=== PATIENT | female | born 1960 | race Caucasian/White ===

== ENCOUNTER → 2017-06-04 16:28 | Outpatient (CLI) | payer OTHER, SELFPAY ==
--- NOTE | 2017-06-04 16:34 | RAD_ITS ---
XR Chest 2 Views INDICATION: cough COMPARISON: None FINDINGS: Heart size and pulmonary vascularity are within normal limits. The lungs are clear without evidence of airspace consolidation or pleural effusion. The osseous structures are grossly unremarkable. RAD/Chest PA and Lateral IMPRESSION: No radiographic evidence of acute intrathoracic disease. at 1444 Reported and signed by: Pam Anton MD Electronically Signed: Pam Anton MD at 22:52 EST Tel , Service support ,
== END ==
PROVIDERS: Family Provider Family Medicine; PCP Family Medicine; Visit Provider Family Medicine
DX: R05 Cough (principal)
CPT/HCPCS: 71046

== ENCOUNTER → 2017-08-11 08:29 | Outpatient (CLI) | payer OTHER, SELFPAY ==
--- NOTE | 2017-08-11 08:31 | BI_ITS ---
MAMMOGRAPHY - BILATERAL SCREENING REASON FOR EXAM: Female, 57 years old. Routine annual screening examination. PERTINENT HISTORY: Non-contributory. TECHNIQUE: Digital bilateral breast jenny (3D mammographic acquisition) in the CC and MLO projections. 2-D mediolateral oblique (MLO) and craniocaudad (CC) views of both breasts were obtained. CAD: Full Field Digital Mammography with Computer Added Detection was performed. COMPARISON: Comparison is made with prior study dated July 16, 2016 and November 09, 2014. FINDINGS: Breast Composition: There are scattered areas of fibroglandular density. There are no dominant masses or suspicious calcifications. No other significant abnormalities are identified. There has been no significant change since the prior study. BI/SCREENING MAMM (CAD), BILAT IMPRESSION: Stable bilateral screening mammogram. Yearly follow-up mammogram recommended. (A) ASSESSMENT CATEGORY: BIRADS Category 1: Negative. A letter regarding these results will be sent to the patient by the facility within 30 days. Approximately 10% of breast cancers are not detected by mammography. A normal mammogram should not delay biopsy of a clinically suspicious abnormality. [id number] Electronically Signed: Romulo Hermosillo MD at 9:32 EDT Tel [phone], Service support ,
== END ==
PROVIDERS: Family Provider Family Medicine; PCP Family Medicine; Visit Provider Family Medicine
DX: Z12.31 Encounter for screening mammogram for malignant neoplasm of breast (principal)
CPT/HCPCS: 77063; 77067

== ENCOUNTER → 2018-08-14 07:20 | Outpatient (CLI) | payer OTHER, SELFPAY ==
--- NOTE | 2018-08-14 07:23 | BI_ITS ---
MAMMOGRAPHY - BILATERAL SCREENING REASON FOR EXAM: Female, 58 years old. Routine annual screening examination. PERTINENT HISTORY: Non-contributory. TECHNIQUE: Digital bilateral breast jenny (3D mammographic acquisition) in the CC and MLO projections. 2-D mediolateral oblique (MLO) and craniocaudad (CC) views of both breasts were obtained. CAD: Full Field Digital Mammography with Computer Added Detection was performed. COMPARISON: Comparison is made with prior study dated August 11, 2017 and July 16, 2016. FINDINGS: Breast Composition: There are scattered areas of fibroglandular density. There are no dominant masses or suspicious calcifications. No other significant abnormalities are identified. There has been no significant change since the prior study. BI/SCREENING MAMM (CAD), BILAT IMPRESSION: Stable bilateral screening mammogram. Yearly follow-up mammogram recommended. (A) ASSESSMENT CATEGORY: BIRADS Category 1: Negative. A letter regarding these results will be sent to the patient by the facility within 30 days. Approximately 10% of breast cancers are not detected by mammography. A normal mammogram should not delay biopsy of a clinically suspicious abnormality. [id number] Electronically Signed: Romulo Hermosillo, at 9:08 EDT , Service support ,
== END ==
PROVIDERS: Family Provider Family Medicine; PCP Family Medicine; Referring Provider Family Medicine; Visit Provider Family Medicine
DX: Z12.31 Encounter for screening mammogram for malignant neoplasm of breast (principal)
CPT/HCPCS: 77063; 77067

== ENCOUNTER → 2018-12-29 10:41 | Outpatient (CLI) | payer OTHER, SELFPAY ==
[2017-03-18 07:34] VITALS: BMI 30.4
== END ==
PROVIDERS: Family Provider Family Medicine; PCP Family Medicine; Referring Provider Nurse Practitioner Adult Health; Visit Provider Nurse Practitioner Adult Health
DX: N39.0 Urinary tract infection, site not specified (principal)
CPT/HCPCS: 87086; 87088

== ENCOUNTER → 2019-01-05 16:20 | Outpatient (CLI) | payer OTHER, SELFPAY ==
[2017-03-18 07:34] VITALS: BMI 30.4
== END ==
PROVIDERS: Family Provider Family Medicine; PCP Family Medicine; Visit Provider Nurse Practitioner Adult Health
DX: N76.0 Acute vaginitis (principal)
CPT/HCPCS: 87070; 87075; 87205

== ENCOUNTER 2019-02-02 05:57 | Day surgery (SDC) | payer OTHER, SELFPAY ==
[2019-02-02] VITALS (7 sets, daily range): BP systolic 104–141; BP diastolic 82–88; PULSE 61–82; RESP 16–18; TEMP 36–36.2; O2SAT 94–100; BMI 31.6
[2019-02-02] MEDS: Lactated Ringers 1,000 ML 100 ML IV (07:01)
--- NOTE | 2019-02-02 07:37 | PCM.OPRPT ---
Problem List (1) Urge incontinence Status: Acute (2) Urinary tract infection Status: Acute Report of Operation Date of Procedure: 02/02/19 Pre-Operative Diagnosis: urinary tract infections, urge incontinence Post-Operative Diagnosis: same Surgery/Procedure Performed:: cystourethroscopy, pelvic exam under anesthesia Description of Surgical Findings:: No visible mesh in urethra. Urethra is short, mildly narrowed, decreased mobility. No mass or ulceration bladder mucosa. 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 Both of these procedures were marked by complications. Now she is developing severe urge incontinence where she is emptying her entire bladder contents. In order to further evaluate the anatomy of the urethra, we decided to proceed with cystoscopic evaluation under anesthesia. Informed consent was obtained. The patient was taken to the operating room and placed on the operating room table. Anesthesia monitored the head, neck, airway, IV access and vital signs throughout the case. Following appropriate administration of anesthesia, the patient was placed in dorsal lithotomy position was prepped and draped in usual sterile fashion. On pelvic examination, there is no palpable mesh. There is a small rectocele present. The urethral length appears to be shortened. A 21 [place] cystoscope with 0 degree lens was inserted through the urethra under direct visualization. There is mild narrowing of the urethra approximately 1 cm from the meatus. There is no visible mesh or foreign material within the urethral lumen. There is decreased mobility and shortening of the urethral length. The length is approximately 2-1/2 cm. Upon entry into the urinary bladder, the 70 degree lens was inserted. The bladder mucosa was visualized in its entirety. There were no abnormalities identified including mass, erythema, ulceration, foreign body, trabeculation or diverticula. The ureteral orifices were located in the correct anatomic position. At this point the patient's bladder was emptied and the case was terminated. The patient was taken to the recovery room in good condition. Grafts/Implants Used: none - Complications none - Admit VTE Documentation VTE Present on Admission: Yes VTE Mechan Device Prophylaxis: SCD's VTE Pharm Prophylaxis ordered?: No Reason prophylaxis not ordered:: Treatment Not Indicated
--- NOTE | 2019-02-02 07:51 | PCM.DC.URO ---
Discharge Diet: No Restrictions Discharge Activity: - - may drive in 24hrs May resume sexual activity in: No Restrictions Call your doctor if you observe: Inability to urinate, Inability to have a bowel movement, Shortness of breath, Chest pain, Uncontrolled pain Allergies/Adverse Reactions: Allergies Sulfa (Sulfonamide Antibiotics) Allergy (Verified 02/02/19 06:50) Anaphylaxis tomato Allergy (Verified 02/02/19 06:50) Mucosal lesions acetaminophen [From Vicodin] Adverse Reaction (Verified 02/02/19 06:50) HALLUCINATIONS codeine Adverse Reaction (Verified 02/02/19 06:50) Nausea/Vom/Diarrhea hydrocodone [From Vicodin] Adverse Reaction (Verified 02/02/19 06:50) HALLUCINATIONS promethazine [From Phenergan] Adverse Reaction (Verified 02/02/19 06:50) HALLUCINATIONS Medications to take at Discharge Estradiol [Divigel] 0.25 mg TD SUWE 01/26/19 Fluticasone 0.05% [Flonase Nasal Jackson] 1 spray NASAL DAILY PRN 01/26/19 Primary Care Physician: Maverick Becker MD [Primary Care Provider] - Test Results: Test results from this visit will be discussed in further detail at your follow-up appointment, if applicable. Please Follow Up With: Gisela Camejo MD When: call office for appt, needs urodynamics Proposed Discharge Date: 02/02/19
== END 2019-02-02 08:49 | disposition home or self-care (01) ==
LOC: SDC 05:59 → AC 06:00
PROVIDERS: Family Provider Family Medicine; PCP Family Medicine; Referring Provider Urology; Visit Provider Urology
PROC: (CPT 52000; principal; 2019-02-02 07:15)
DX: N39.41 Urge incontinence (principal); N39.0 Urinary tract infection, site not specified; N95.2 Postmenopausal atrophic vaginitis; N81.6 Rectocele
CPT/HCPCS: 00910; 52000; J7120; J2405

== ENCOUNTER → 2019-10-07 16:30 | Outpatient (CLI) | payer OTHER, SELFPAY ==
[2019-02-02 06:54] VITALS: BMI 31.6
--- NOTE | 2019-10-07 16:48 | BI_ITS ---
MAMMOGRAPHY - BILATERAL SCREENING REASON FOR EXAM: Female, 59 years old. Routine annual screening examination. PERTINENT HISTORY: Non-contributory. TECHNIQUE: Digital bilateral breast yandel (3D mammographic acquisition) in the CC and MLO projections. 2-D mediolateral oblique (MLO) and craniocaudad (CC) views of both breasts were obtained. CAD: Full Field Digital Mammography with Computer Added Detection was performed. COMPARISON: Comparison is made with prior study dated August 14, 2018 and August 11, 2017. FINDINGS: Breast Composition: There are scattered areas of fibroglandular density. There are no dominant masses or suspicious calcifications. No other significant abnormalities are identified. There has been no significant change since the prior study. BI/SCREEN MAMM (CAD) W/YANDEL BILAT IMPRESSION: Stable bilateral screening mammogram. Yearly follow-up mammogram recommended. (A) ASSESSMENT CATEGORY: BIRADS Category 1: Negative. A letter regarding these results will be sent to the patient by the facility within 30 days. Approximately 10% of breast cancers are not detected by mammography. A normal mammogram should not delay biopsy of a clinically suspicious abnormality. [id number] Electronically Signed: Romulo Hermosillo, at 8:22 EDT , Service support ,
== END ==
PROVIDERS: PCP Family Medicine; Referring Provider Obstetrics & Gynecology; Visit Provider Obstetrics & Gynecology
DX: Z12.31 Encounter for screening mammogram for malignant neoplasm of breast (principal)
CPT/HCPCS: 77063; 77067

== ENCOUNTER → 2019-11-30 07:46 | Outpatient (CLI) | payer OTHER, SELFPAY ==
[2019-02-02 06:54] VITALS: BMI 31.6
[2019-11-30 10:50] LABS: Anion Gap 4 (5-15); BUN 14 mg/dL (7-18); BUN/Creat Ratio 22.3 RATIO (10-20); Calcium,Total 8.6 mg/dL (8.5-10.1); Chloride 106 mmol/L (98-107); Cholesterol 184 mg/dL (200); Creatinine, Serum 0.63 mg/dL (0.55-1.02); EST Glomerular Filtration Rate 102 mL/min (>60); Est Glom Filt Rate - Afr Amer 124 mL/min (>60); Glucose 88 mg/dL (74-106); High Density Lipoprotein 49 mg/dL; Potassium 3.9 mmol/L (3.5-5.1); Sodium Level 138 mmol/L (136-145); Triglycerides 77 mg/dL; Very Low Density Lipoprotein 15 mg/dL (5-40)
== END ==
PROVIDERS: PCP Family Medicine; Referring Provider Family Medicine; Visit Provider Family Medicine
DX: Z13.220 Encounter for screening for lipoid disorders (principal); Z13.1 Encounter for screening for diabetes mellitus
CPT/HCPCS: 36415; 80048; 80061

== ENCOUNTER → 2020-04-21 06:23 | Outpatient (CLI) | payer OTHER, SELFPAY ==
[2019-02-02 06:54] VITALS: BMI 31.6
[2020-04-21 07:51] LABS: Anion Gap 3 (5-15); BUN 20 mg/dL (7-18); BUN/Creat Ratio 26.9 RATIO (10-20); Calcium,Total 8.8 mg/dL (8.5-10.1); Chloride 107 mmol/L (98-107); Creatinine, Serum 0.74 mg/dL (0.55-1.02); EST Glomerular Filtration Rate 84 mL/min (>60); Est Glom Filt Rate - Afr Amer 102 mL/min (>60); Glucose 85 mg/dL (74-106); Sodium Level 140 mmol/L (136-145)
== END ==
PROVIDERS: PCP Family Medicine; Referring Provider Family Medicine; Visit Provider Family Medicine
DX: I10 Essential (primary) hypertension (principal)
CPT/HCPCS: 36415; 80048

== ENCOUNTER → 2020-05-10 15:36 | Outpatient (CLI) | payer OTHER, SELFPAY ==
[2019-02-02 06:54] VITALS: BMI 31.6
--- NOTE | 2020-05-10 15:44 | MRI_ITS ---
STUDY: MRI RIGHT ANKLE WITHOUT CONTRAST REASON FOR EXAM: Female, 60 years old. plantar fasciitis, stress fracture calcaneous -- hx of radiation to heel for wart TECHNIQUE: Standardized fat and water weighted pulse sequences were obtained in all 3 orthogonal planes. COMPARISON: None. FINDINGS: Normal subcutis adipose space. No marrow edema or occult fracture is seen. No plantar fibroma is visualized. Slightly prominent lobulated subcutaneous fat on the medial side of the heel versus a small lipoma measuring 4.51 cm. Normal posterior tibialis tendon. Normal flexor digitorum longus tendon. Normal flexor hallucis longus tendon. Normal peroneus longus and brevis tendons. Normal tibialis anterior tendon. Normal extensor hallucis longus tendon. Normal extensor digitorum longus tendons. Normal Achilles tendon and teno-osseous insertion. Normal plantar fascia. No plantar fascial thickening or intrinsic degeneration seen on the current study. No plantar bursitis or active edema is seen on the current study. No visualized plantar calcaneal spur. Normal plantar calcaneal tubercles. Normal intrinsic muscles of the rearfoot. Normal distal tibiofibular syndesmotic ligamentous complex. Normal lateral ligamentous complex. Normal subtalar ligaments and sinus tarsi. Normal deltoid ligamentous complexes. Normal plantar calcaneonavicular (spring) ligament. Normal tibiotalar articulation. Normal talar dome. Normal subtalar articulations. Normal talonavicular articulation. Normal calcaneocuboid articulation. Normal navicular-cuneiform articulations. MRI/Lower Ext Joint Only (Routine) IMPRESSION: 1. Normal plantar fascia. No plantar fascial thickening or intrinsic degeneration seen on the current study. No plantar bursitis or active edema is seen on the current study. No visualized plantar calcaneal spur. 2. No marrow edema or occult fracture is seen. No plantar fibroma is visualized. 3. Slightly prominent lobulated subcutaneous fat on the medial side of the heel versus a small lipoma measuring 4.51 cm. Electronically Signed: Boom Ervin MD at 22:14 EST , Service support ,
== END ==
PROVIDERS: PCP Family Medicine; Referring Provider Podiatrist; Visit Provider Podiatrist
DX: M72.2 Plantar fascial fibromatosis (principal); S90.31XA Contusion of right foot, initial encounter; S92.009A Unspecified fracture of unspecified calcaneus, initial encounter for closed fracture
CPT/HCPCS: 73721

== ENCOUNTER → 2020-08-21 14:37 | Outpatient (CLI) | payer OTHER, SELFPAY ==
[2019-02-02 06:54] VITALS: BMI 31.6
== END ==
PROVIDERS: PCP Family Medicine; Visit Provider Family Medicine
DX: N39.0 Urinary tract infection, site not specified (principal)
CPT/HCPCS: 87077; 87086; 87088; 87186

== ENCOUNTER → 2020-09-29 08:43 | Outpatient (CLI) | payer OTHER, SELFPAY ==
[2019-02-02 06:54] VITALS: BMI 31.6
--- NOTE | 2020-09-29 08:46 | RAD_ITS ---
STUDY: X-RAY - RIGHT KNEE REASON FOR EXAM: Female, 60 years old. KNEE PAIN TECHNIQUE: 3 view(s) of the knee. COMPARISON: None. FINDINGS: Normal visualized distal femur. Normal visualized proximal tibia and fibula. Normal proximal tibiofibular articulation. There is mild degenerative arthrosis of the medial femorotibial compartment. Normal lateral femorotibial compartment. Normal patellofemoral articulation. The soft tissue structures are unremarkable. RAD/Knee 3 Views IMPRESSION: Degenerative arthrosis. Electronically Signed: Romulo Hermosillo MD at 13:08 EDT , Service support ,
== END ==
PROVIDERS: PCP Family Medicine; Referring Provider Family Medicine; Visit Provider Family Medicine
DX: M25.561 Pain in right knee (principal)
CPT/HCPCS: 73562

== ENCOUNTER 2020-11-15 17:30 | Outpatient (RCR) | payer OTHER, SELFPAY ==
[2019-02-02 06:54] VITALS: BMI 31.6
--- NOTE | 2020-10-04 15:51 | HP.PTEVAL_ITS ---
Patient's Visit Information HUDSON WOMACK is a 60 year old F referred to Physical Therapy by Dr. Maverick Becker MD with a diagnosis of R knee pain. Date of Evaluation: 10/04/20 Physical Therapist: KAROLINE Gutierrez - Visit Plan Frequency: 2x /Week Duration: 6 Weeks Plan: 2X/ week for 6 weeks for R knee and hip strength, core stability, US to the R medial joint line to see if helps with the pain, gait training, with HEP - Subjective Pt reports that there are days that she can not put weight on her knee or do steps or anything. There are days that she has no pain. It has been going on for awhile. 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 It is a shooting pain and sometimes it wakes her up at night. She does have back pain. She also had shoulder shoulder and she has a lot of arthritis. Stairs, side motions, squats, twisting hurts the most and going down stairs hurts worse than upstairs, changing directions.... and that is only sometimes In the last 2-3 weeks she feels her R knee is weak but the pain is not always there. When she has her back pain sometimes it does radiate down the R leg and she has had that pain for years and that started in 2007. She has not had any images of her back. Sometimes picking up objects from the floor increase her back pain for an hour. Sometimes the knee pain is sharp and sometimes it is just achy and she does not know what is causing the sharp pain. - Pain R knee pain Pain Intensity (Out of 10): 1 - Objective Gait: walks with decrease stance time on the R.. (also has a history of non- healing plantar wart from radiation treatments). Palpation: tender along the medial joint line on the L knee. LE MMT: R hip flex 4-/5 and L 4/5, B knee ext and flex 4/5, R hip abd 4-/5 and L 4/5, R hip ext 4-/5 and L 4/5. no pain with valgus/verus of the R knee. Pt is able to walk on heels and toes without dificulty. + SLR on the R for back pain. B knee flexion 127 degrees flexion and 0 degrees extension - Goals Goal 1:: I HEP Goal Time Frame: 4-6 Weeks Goal 2:: Increase LE strength by 1/2 muscle grade (at time of the eval: LE MMT: R hip flex 4-/5 and L 4/5, B knee ext and flex 4/5, R hip abd 4-/5 and L 4/5, R hip ext 4-/5 and L 4/5. no pain with valgus/verus of the R knee. Pt is able to walk on heels and toes without dificulty. + SLR on the R for back pain). Goal Time Frame: 4-6 Weeks Goal 3:: Be able to walk without an antalgig gait Goal Time Frame: 4-6 Weeks Goal 4:: Be able to go down the steps without having R knee pain Goal Time Frame: 6-8 Weeks - Rehabilitation Potential Rehabilitation Potential: Good - Anticipated Interventions Patient/Client Instruction: Educate patient on: Condition, Plan of Care For the Purpose of:: To decrease pain, To decrease swelling/inflammation, To increase ROM, To improve nutrient delivery to tissue, To improve muscle performance and motor function, To improve ability to perform ADL's, To increase tolerance to activity/condition/position, To improve performance and independence with ADL's, To decrease level of supervision to perform tasks, To improve ability of physical actions for home/community/work/leisure, To improve gait and locomotor functions, To improve health of tissue, To decrease soft tissue restriction, To increase flexibility/ROM Therapeutic Exercise to Include: Strength training, Balance training, Flexibilty training, Gait and locomotor training, Passive ROM, Active ROM, Dynamic Lumbar Stabilization For the Purpose of:: To decrease pain, To improve nutrient delivery to tissue, To increase oxygenation perfusion, To improve muscle performance and motor function, To improve ability to perform ADL's, To increase tolerance to activity/condition/position, To improve performance and independence with ADL's, To decrease level of supervision to perform tasks, To improve ability of physical actions for home/community/work/leisure, To improve gait and locomotor functions, To improve health of tissue, To decrease soft tissue restriction, To increase flexibility/ROM Functional Training to Include: Gait training For the Purpose of:: To improve gait and locomotor functions, To improve safety with gait Manual Therapy Techniques to Include: Mobilization, Passive ROM, Soft tissue mobilization For the Purpose of:: To decrease pain, To decrease swelling/inflammation, To increase ROM, To improve nutrient delivery to tissue, To improve muscle performance and motor function Ultrasound (thermal/non thermal): Yes For the Purpose of:: To decrease pain, To increase ROM, To improve nutrient delivery to tissue Thank you for the opportunity to evaluate your patient. For Medicare and Medicare HMO plans, please review the plan of care and approve it. It will need to be FAXED BACK to us at [phone] for Medicare purposes. For Medicare only, by signing this I certify the plan of care. Please let me know if there are questions or concerns regarding this plan of care. Physician Signature: Date:_
--- NOTE | 2020-11-15 19:02 | HP.PTDCSUM ---
It has been my pleasure to treat HUDSON WOMACK referred by Dr. Maverick Becker MD, with the diagnosis of R knee pain for a total of 8 visit(s). Discharge Date: 11/15/20 Please see the following information for a summary of their discharge status. Subjective: Pt has no knee pain. She has not had it for awhile. She has had some back pain. Her back pain is ok since in the middle of the night and first thing in the morning. She can not do press ups first thing in the morning cause it hurts. Ever since she had her bladder suspension and tries to do core she gets back and abdominal pain. She feels that she has lost all her abdominal strength since that surgery. She reports that HS curl machine made her hurt. R knee pain Pain Intensity (Out of 10): 0 % Improvement: 100 Objective/Function: LE MMT: LE MMT: R hip flex 4/5 and L 4/5, B knee ext and flex 4/5, R hip abd 4/5 and L 4/5, R hip ext 4/5 and L 4/5. Goal 1:: I HEP Goal Progress: Goal Met Goal 2:: Increase LE strength by 1/2 muscle grade (at time of the eval: LE MMT: R hip flex 4-/5 and L 4/5, B knee ext and flex 4/5, R hip abd 4-/5 and L 4/5, R hip ext 4-/5 and L 4/5. no pain with valgus/verus of the R knee. Pt is able to walk on heels and toes without dificulty. + SLR on the R for back pain). Goal Progress: Goal Met Goal 3:: Be able to walk without an antalgig gait Goal Progress: Goal Met Goal 4:: Be able to go down the steps without having R knee pain Goal Progress: Goal Met Plan: DC PT to I knee strengthening program and H&W program Discharge Comments: DC PT to home and gym exercises If there are questions or concerns regarding this patient's physical therapy, please feel free to call me at [phone]. Thank you for the referral of this patient. Sincerely, Cheli García, MPT Balance/Gait/Functional tests - Balance/Special Test Scores Lower Extremity Functional Score: 79
== END 2020-11-15 19:00 | disposition home or self-care (01) ==
LOC: PT 17:30
PROVIDERS: PCP Family Medicine; Referring Provider Family Medicine; Visit Provider Family Medicine
DX: M25.561 Pain in right knee (principal)
CPT/HCPCS: 97110; 97161; 97530

== ENCOUNTER → 2020-11-20 14:04 | Outpatient (CLI) | payer OTHER, SELFPAY | PROVIDERS: PCP Family Medicine; Referring Provider Family Medicine; Visit Provider Family Medicine | DX: R30.0 Dysuria (principal) | CPT/HCPCS: 87077; 87086; 87088; 87186 ==

== ENCOUNTER → 2021-01-19 10:13 | Outpatient (CLI) | payer OTHER, SELFPAY ==
--- NOTE | 2021-01-19 10:15 | BI_ITS ---
MAMMOGRAPHY - BILATERAL SCREENING REASON FOR EXAM: Female, 60 years old. Routine annual screening examination. PERTINENT HISTORY: Non-contributory. TECHNIQUE: Digital bilateral breast yandel (3D mammographic acquisition) in the CC and MLO projections. 2-D mediolateral oblique (MLO) and craniocaudad (CC) views of both breasts were obtained. CAD: Full Field Digital Mammography with Computer Added Detection was performed. COMPARISON: Comparison is made with prior study dated 10/07/2019 and 08/14/2018 FINDINGS: Breast Composition: There are scattered areas of fibroglandular density. There are no dominant masses or suspicious calcifications. Stable small benign-appearing bilateral axillary lymph nodes. No other significant abnormalities are identified. There has been no significant change since the prior study. BI/SCRN MAMM (CAD)W/YANDEL BILAT IMPRESSION: Stable bilateral screening mammogram. Yearly follow-up mammogram recommended. (A) ASSESSMENT CATEGORY: BIRADS Category 2: Benign. A letter regarding these results will be sent to the patient by the facility within 30 days. Approximately 10% of breast cancers are not detected by mammography. A normal mammogram should not delay biopsy of a clinically suspicious abnormality. [id number] Electronically Signed: Romulo Hermosillo MD at 11:19 EDT , Service support ,
== END ==
PROVIDERS: PCP Family Medicine; Referring Provider Family Medicine; Visit Provider Family Medicine
DX: Z12.31 Encounter for screening mammogram for malignant neoplasm of breast (principal)
CPT/HCPCS: 77063; 77067

== ENCOUNTER 2021-01-25 17:30 | Outpatient (RCR) | payer OTHER, SELFPAY ==
--- NOTE | 2020-12-18 16:28 | HP.PTEVAL_ITS ---
Patient's Visit Information HUDSON WOMACK is a 60 year old F referred to Physical Therapy by Dr. Maverick Becker MD with a diagnosis of LOW BACK PAIN ,RIGHT HIP SCIATICA. Date of Evaluation: 12/18/20 Physical Therapist: Vance Moore, PT, Cert MDT, [facility] - Visit Plan Frequency: 2x /Week Duration: 4 Weeks Plan: PT INTEREVTION PATIENT MODIFICATION ,HEP,POSTURE/BODY MECHANICS,MODALTIES ,SONIDO EX'S,POSTURAL EX'S AND DLS - Subjective This 60 y/o female presents to physical therapy with low back pain with right sciatica. Patient has had LBP and radicular several years . Patient see PT for right knee which got better. RTD recommended to continue with PT for back. Location of pain right LS occasional to buttock to hamstrings. Patient tries to exercises symptoms get worse. Aggravating factors sitting, morning bending and lifting. Alleviating factors walking and standing but pain can increase symptoms based on intensity of symptoms. Patient pain affects sleeping and unable ,lay prone. Denies paresthesia/tingling . Coughing/sneezing -. Bowel/bladder. Patient pain affects job demands with [employer] carrying and lifting causes back pain. No diagnostics. Patient pain affects QOL and function. SOCIAL: . 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 GAIT: reciprocal pattern. PALAPTION: tender LS/SI. SYMMTRIES: align. NEURO: denies paresthesia/tingling ,reflexes L3-4,L4-5,L5-S 1 13. MMT: quads/hams 4/5,hip flexion /abduction 4-/5,ankle 5/5. LUMBAR ROM: flexion min loss extension min/mod loss ,pain with flexion less with extension ,side glides min loss. FLEXABILITY: hamstrings min loss HIP ROM WFL - Special Tests L/S Slump test left side: Negative L/S Slump test right side: Negative L/S Left Straight Leg Raise: Negative L/S Right Straight Leg Raise: Negative Lumbar Standing: Flexion - Mechanical Response: No effect Lumbar Standing: Flexion - Symptoms During Testing: Increases Lumbar Standing: Flexion - Symptoms After Testing: Worse Lumbar Standing: Extension - Mechanical Response: No effect Lumbar Standing: Extension - Symptoms After Testing: No better Lumbar Standing: Right Side Glides - Mechanical Response: No effect Lumbar Standing: Right Side [place] - Symptoms During Testing: No effect Lumbar Standing: Right Side [place] - Symptoms After Testing: No effect Lumbar Standing: Left Side [place] - Mechanical Response: No effect Lumbar Standing: Left Side [place] - Symptoms During Testing: No effect Lumbar Standing: Left Side [place] - Symptoms After Testing: No effect Lumbar Lying: Flexion - Mechanical Response: No effect Lumbar Lying: Flexion - Symptoms During Testing: Increases Lumbar Lying: Flexion - Symptoms After Testing: Worse Lumbar Lying: Extension - Mechanical Response: No effect Lumbar Lying: Extension - Symptoms During Testing: Increases - Balance/Special Test Scores Oswestry Low Back Score: 21 - Goals Goal 1:: Patient to be I with HEP to manage pain Goal Time Frame: 4-6 Weeks Goal 2:: Patient to be I with posture/body mechanics to diminish lumbar pain and radicular symptoms. Goal Time Frame: 4-6 Weeks Goal 3:: Patient pain decreased by70 % improvement to improve function and ADLS's Goal Time Frame: 4-6 Weeks Goal 4:: Patient to improve lumbar ROM for function of recovery Goal Time Frame: 4-6 Weeks Goal 5:: Patient to improve back owestry score by 5 points or > to improve function - Rehabilitation Potential Physical Therapy Diagnosis: This patient has right LBP with right side with decrease ROM with pain with position and motion testing worse with sitting some better with extension and correction of posture thus benifit from skilled PT Rehabilitation Potential: Good - Anticipated Interventions Patient/Client Instruction: Educate patient on: Condition, Plan of Care For the Purpose of:: To decrease pain, To increase ROM, To improve muscle performance and motor function, To improve ability to perform ADL's, To increase tolerance to activity/condition/position, To improve ability of physical actions for home/community/work/leisure, To improve health of tissue, To decrease soft tissue restriction, To increase flexibility/ROM, To reduce risk of recurrence, To prevent re-injury Therapeutic Exercise to Include: Strength training, Body mechanics, Postural training, Flexibilty training, Dynamic Lumbar Stabilization, Sonido Exercises For the Purpose of:: To decrease pain, To increase ROM, To improve muscle performance and motor function, To increase tolerance to act ivity/condition/position, To improve ability of physical actions for home/community/work/leisure, To improve health of tissue, To decrease soft tissue restriction, To increase flexibility/ROM, To reduce risk of recurrence, To improve self management TENS: Yes IF ES: Yes Cryotherapy (ice pack, ice massage): Yes Thermo therapy (hot pack): Yes Ultrasound (thermal/non thermal): Yes For the Purpose of:: To decrease pain, To increase ROM, To improve health of tissue, To decrease soft tissue restriction, To increase flexibility/ROM Thank you for the opportunity to evaluate your patient. For Medicare and Medicare HMO plans, please review the plan of care and approve it. It will need to be FAXED BACK to us at [phone] for Medicare purposes. For Medicare only, by signing this I certify the plan of care. Please let me know if there are questions or concerns regarding this plan of care. Physician Signature: Date:
--- NOTE | 2021-04-16 13:31 | HP.PTDCSUM ---
It has been my pleasure to treat HUDSON WOMACK referred by Dr. Maverick Becker MD, with the diagnosis of LOW BACK PAIN ,RIGHT HIP SCIATICA for a total of 8 visit(s). Discharge Date: 01/25/21 Please see the following information for a summary of their discharge status. Subjective: Doing alot better..used different bed Right Back Pain Intensity (Out of 10): 0 Left Ankle Pain Intensity (Out of 10): 0 % Improvement: 95 Objective/Function: POSTURE: WFL. NEURO: INTACT. MMT: QUADS/HAMS/HIP 4/5. LUMBAR ROM: FLEXION WFL ,EXTENSION MIN LOSS. -SLR. FLEXABLITY: hams WFL Goal 1:: Patient to be I with HEP to manage pain Goal Progress: Goal Met Goal 2:: Patient to be I with posture/body mechanics to diminish lumbar pain and radicular symptoms. Goal Progress: Goal Met Goal 3:: Patient pain decreased by70 % improvement to improve function and ADLS's Goal Progress: Goal Met Goal 4:: Patient to improve lumbar ROM for function of recovery Goal Progress: Goal Met Goal 5:: Patient to improve back owestry score by 5 points or > to improve function Goal Progress: Goal Met Plan: D/C TO HEP Discharge Comments: HEP AND HP If there are questions or concerns regarding this patient's physical therapy, please feel free to call me at [phone]. Thank you for the referral of this patient. Sincerely, Vance Moore, PT, Cert MDT, OCS Balance/Gait/Functional tests - Balance/Special Test Scores Oswestry Low Back Score: 0
== END 2021-01-25 19:00 | disposition home or self-care (01) ==
LOC: PT 17:30
PROVIDERS: PCP Family Medicine; Referring Provider Family Medicine; Visit Provider Family Medicine
DX: M54.41 Lumbago with sciatica, right side (principal)
CPT/HCPCS: 97014; 97110; 97162; G0283

== ENCOUNTER → 2021-02-09 07:50 | Outpatient (CLI) | payer OTHER, SELFPAY ==
[2021-02-09 10:26] LABS: Anion Gap 4 (5-15); BUN 16 mg/dL (7-18); BUN/Creat Ratio 21.6 RATIO (10-20); Chloride 107 mmol/L (98-107); Cholesterol 177 mg/dL (200); Creatinine, Serum 0.74 mg/dL (0.55-1.02); EST Glomerular Filtration Rate 84 mL/min (>60); Est Glom Filt Rate - Afr Amer 102 mL/min (>60); Glucose 95 mg/dL (74-106); High Density Lipoprotein 46 mg/dL; Potassium 3.9 mmol/L (3.5-5.1); Sodium Level 139 mmol/L (136-145); Triglycerides 106 mg/dL; Very Low Density Lipoprotein 21 mg/dL (5-40)
== END ==
PROVIDERS: PCP Family Medicine; Referring Provider Nurse Practitioner Family; Visit Provider Nurse Practitioner Family
DX: Z13.220 Encounter for screening for lipoid disorders (principal); Z13.1 Encounter for screening for diabetes mellitus
CPT/HCPCS: 36415; 80048; 80061

== ENCOUNTER 2021-06-01 10:53 | Outpatient (CLI) | payer OTHER, SELFPAY ==
[2021-06-01 12:08] LABS: Absolute Lymphocyte Count 2.18 X10^3/uL (0.83-4.51); Absolute Neutrophil Count 6.1 X10^3/uL (2.0-7.7); Basophil# 0.04 X10^3/uL; Basophil% 0.4 % (0-1); Eosinophil# 0.06 X10^3/uL; Eosinophils% 0.6 % (0-5); Hematocrit 45.9 % (37-47); Hemoglobin 15.4 g/dL (12.0-15.0); Lymphocyte # 2.18 X10^3/ul (0.83-4.51); Lymphocyte % 23.3 % (19-41); Mean Corp Hgb Conc 33.6 g/dL (32-36); Mean Corpuscular Hgb 31.8 pg (27.0-32.0); Mean Corpuscular Volume 94.8 fL (81-99); Mean Platelet Vol. 11.6 fl (6.2-12.0); Monocyte% 9.6 % (0-10); NRBC Flagged by Analyzer 0 % (0-5); Neutrophil # 6.13 X10^3/uL (2.7-7.7); Neutrophil % 65.8 % (47-70); Platelet Count 313 K/mm3 (150-450); RBC Distribution Width CV 11.8 % (11.6-14.6); RBC Distribution Width SD 40.7 fl (35.1-43.9); Red Blood Count 4.84 M/mm3 (4.2-5.4); White Blood Count 9.3 K/mm3 (4.4-11.0)
[2021-06-01 13:00] LABS: ALB/GLOB Ratio 1.1 RATIO (0.9-2.4); AST(SGOT) 18 U/L (15-37); Alanine Aminotransfer ALT/SGPT 28 U/L (13-56); Alkaline Phosphatase 80 U/L (45-117); Anion Gap 5 (5-15); BUN 15 mg/dL (7-18); BUN/Creat Ratio 18.9 RATIO (10-20); Calcium,Total 9.2 mg/dL (8.5-10.1); Chloride 101 mmol/L (98-107); Cholesterol 181 mg/dL (200); Creatinine, Serum 0.79 mg/dL (0.55-1.02); EST Glomerular Filtration Rate 78 mL/min (>60); Est Glom Filt Rate - Afr Amer 94 mL/min (>60); Globulin 3.8 g/dL (2.2-4.2); Glucose 94 mg/dL (74-106); High Density Lipoprotein 44 mg/dL; Potassium 4.5 mmol/L (3.5-5.1); Protein, Total 7.8 g/dL (6.4-8.2); Sodium Level 136 mmol/L (136-145); Thyroid Stim Hormone (TSH) 2.01 uIU/mL (0.358-3.74); Triglycerides 163 mg/dL; Very Low Density Lipoprotein 33 mg/dL (5-40)
== END 2021-06-01 23:59 | disposition home or self-care (01) ==
PROVIDERS: PCP Family Medicine; Referring Provider Family Medicine; Visit Provider Family Medicine
DX: I10 Essential (primary) hypertension (principal); N39.0 Urinary tract infection, site not specified
CPT/HCPCS: 36415; 80053; 80061; 84443; 85025; 87077; 87086; 87088; 87186

== ENCOUNTER 2021-06-26 12:32 | Outpatient (CLI) | payer OTHER, SELFPAY ==
--- NOTE | 2021-06-26 12:37 | RAD_ITS ---
STUDY: X-RAY - SACROILIAC JOINTS REASON FOR EXAM: Female, 61 years old. CHRONIC LOW BACK PAIN TECHNIQUE: 3 view(s) of the sacroiliac joints were obtained. COMPARISON: None. FINDINGS: Normal bilateral sacroiliac joints. Normal visualized sacral ala and sacrum. Normal visualized iliac bones. Normal visualized soft tissue structures. RAD/S-I Jts 3 or More Views IMPRESSION: Normal x-ray examination of the bilateral sacroiliac joints. Electronically Signed: Donaldo Valverde MD at 13:43 EDT ,
--- NOTE | 2021-06-26 12:37 | RAD_ITS ---
STUDY: X-RAY - LUMBAR SPINE REASON FOR EXAM: Female, 61 years old. CHRONIC LOW BACK PAIN TECHNIQUE: 4 view(s) of the lumbar spine were obtained. COMPARISON: None FINDINGS: Normal lumbar lordosis. There is no substantial scoliosis. There is a normal alignment of the vertebrae. Normal vertebral bodies and endplates. Mild disc space narrowing throughout the lumbar spine. There is no demonstrated fracture. The soft tissue structures are unremarkable. RAD/L/S Spine Min 4 Views IMPRESSION: Mild age consistent degenerative changes, no acute findings Electronically Signed: Donaldo Valverde MD at 13:42 EDT ,
[2021-06-26 15:44] LABS: Ferritin 78 ng/mL (8-252); Iron 111 ug/dL (50-170); Iron Binding Capacity,Total 344 ug/dL (250-450); Vitamin B12 508 pg/mL (211-911); Vitamin D,25 Hydroxy 28.6 ng/mL
[2021-06-28 18:33] LABS: Transferrin 261 mg/dL (192-364)
== END 2021-06-26 23:59 | disposition home or self-care (01) ==
LOC: MTLAB 12:35
PROVIDERS: PCP Family Medicine; Referring Provider Family Medicine; Visit Provider Family Medicine
DX: M54.50 Low back pain, unspecified (principal)
CPT/HCPCS: 36415; 72110; 72202; 82306; 82607; 82728; 83540; 83550; 84466

== ENCOUNTER 2021-06-29 11:56 | Outpatient (CLI) | payer OTHER, SELFPAY ==
--- NOTE | 2021-06-29 11:59 | US_ITS ---
STUDY: THYROID ULTRASOUND REASON FOR EXAM: Female, 61 years old. THYROID NODULE TECHNIQUE: Ultrasound evaluation of the thyroid was performed with real-time and static cavazos-scale imaging. COMPARISON: None. FINDINGS: RIGHT LOBE: The right lobe of the thyroid gland measures 4.9 cm x 2.3 cm x 2.6 cm. There is a homogeneous echotexture. There is a 1.4 cm x 1.1 cm x 1.6 cm hypoechoic solid nodule in the posterior lower pole of the right lobe. LEFT LOBE: The left lobe of the thyroid gland measures 4.9 cm x 1.9cm x 2.4 cm. There is a homogeneous echotexture. There are no demonstrated solid, cystic or complex lesions. ISTHMUS: The isthmus measures 6 mm. There is a 2 cm x 1.9 cm x 0.9 cm nodule in the isthmus. The regional lymph nodes are normal. US/Thyroid IMPRESSION: 1.4 cm x 1.1 cm x 1.6 cm hypoechoic solid nodule in the lower pole of the right lobe of the thyroid. 2 cm x 1.9 cm x 0.9 cm hypoechoic solid nodule in the isthmus. Correlation with a nuclear medicine thyroid uptake and scan is recommended for further evaluation. Electronically Signed: Romulo Hermosillo MD at 14:42 EDT ,
== END 2021-06-29 23:59 | disposition home or self-care (01) ==
LOC: US 11:57
PROVIDERS: PCP Family Medicine; Referring Provider Family Medicine; Visit Provider Family Medicine
DX: E04.1 Nontoxic single thyroid nodule (principal)
CPT/HCPCS: 76536

== ENCOUNTER → 2021-07-20 | Outpatient (CLI) | payer OTHER, SELFPAY ==
--- NOTE | 2021-07-20 | IMM_PTH ---
PATIENT: HUDSON WOMACK LOC: [facility] U#:[id number] AGE/SX: 61/F ROOM: RE07/20/[address]: Dr. Maverick Morel MD : 1960 BED: DIS: 07/20/2021 SPEC #: [id number] RECD: 07/24/21 13:38 STATUS: ENDER REPeewee #: [id number] KAMAR: 07/20/21 00:[address]: Virgilio Mckinley DEPT: IMMUNOHISTOCHEMISTRY RECD BY: Stephanie Cullen ENTERED: 07/24/21 13:39 SP TYPE: IMMUNO OTHR DR: Dr. Maverick Morel MD Tissues: A - Thyroid gland, NOS Procedures: HBME (initial) CD56 (add) CK19 (add) GAL-3 (add) PHYSICIAN & INSTITUTION [place] [id number] SPECIMEN INFORMATION: Tissue Source: A ? Right thyroid nodule fluid Clinical Info: Thyroid nodules Specimen Number: [id number] CPT code: 47467, 09277 x3 METHODOLOGY: Deparaffinized sections of prefer/formalin-fixed tissue or PAP/DQ stained slides are incubated with monoclonal/polyclonal antibodies/oligonucleotide probes. Localization is made via biotin free immunoperoxidase method. Appropriate controls are performed and reacted as expected. Results on target cell population are indicated in the following table: RESULTS: ANTIBODY / CLONE RESULT Block A HBME1 (HBME-1) positive, focal CK19 (A53-B/A2.26) positive GAL3 (9C4) positive CD56 (123C3.D5) positive These tests were developed and their performance characteristics determined by [facility]. They may not have been cleared or approved by the U.S. Food and Drug Administration. The FDA has determined that such clearance or approval is not necessary. The above immunohistochemical/dualISH markers are ordered and reviewed by the Pathologist. INTERPRETATION: A. Right thyroid nodule fluid, fine needle aspiration: Atypical follicular cells of undetermined significance. DALY:bartolo 07/25/2021
--- NOTE | 2021-07-20 | FLU_PTH ---
PATIENT: HUDSON WOMACK LOC: [facility] U#:[id number] AGE/SX: 61/F ROOM: RE07/20/[address]: Dr. Maverick Morel MD : 1960 BED: DIS: 07/20/2021 SPEC #: [id number] RECD: 07/20/21 15:00 STATUS: ENDER REQ #: [id number] KAMAR: 07/20/21 00:[address]: Virgilio Mckinley DEPT: CYTOLOGY RECD BY: Regina Rivera ENTERED: 07/23/21 08:32 SP TYPE: Fluid OTHR DR: Dr. Maverick Morel MD Tissues: A - Thyroid gland, NOS B - Thyroid gland, NOS C - Thyroid isthmus D - Thyroid isthmus Procedures: Special Stain Group II Surgery Specimen Level IV Cytospin Fluid Cytology Other Comments: @ Ordering doctor for SSII edited from to @ by SULTANA at 07/23/21 1354 @ Ordering doctor for SUIV edited from to DR.DPEABO Wright by SULTANA at 07/23/21 1354 @ Ordering doctor for CYSPIN edited from to DR.DPEABO Wright by SULTANA at 07/23/21 1354 @ Ordering doctor for CYOTHER edited from to @ by SULTANA at 07/23/21 1354 @ Submitting doctor edited from to DR.DPEABO Wright by RGOOD at 07/23/21 1354 HEADER OPERATION: Fine needle aspiration, right thyroid and isthmus PRE-OP DIAGNOSIS: Thyroid nodules TISSUE SUBMITTED: A ? Right thyroid nodule fluid, B ? Right thyroid nodule x12 slides, C ? Isthmus nodule fluid, D ? Isthmus nodule x12 slides DIAGNOSIS CYTOLOGY A. Right thyroid nodule fluid, fine needle aspiration (cytospin and cell block): A few atypical follicular cells of undetermined significance. See comment. B. Right thyroid nodule, fine needle aspiration (smears): Atypical follicular cells of undetermined significance (Freeland category III). Adequate for evaluation. See comment. C. Isthmus nodule fluid, fine needle aspiration (cytospin and cell block): Rare benign follicular cells noted. D. Isthmus nodule, fine needle aspiration (smears): Consistent with benign follicular nodule (Freeland category II). Adequate for evaluation. SJ:bartolo 07/25/2021 COMMENT A. Immunohistochemistry ([id number]) supports the above diagnosis. B. The smears also show drying artifacts. The smears are cellular. Multi-gene next-generation sequencing panel is recommended for this lesion. Correlation with clinical, radiologic findings and appropriate follow up are necessary. CYTOLOGY STUDY Slides are reviewed. CYTOLOGY GROSS A - Received is 30 ml of light brown cloudy fluid labeled with the patient's name and and designated per the requisition as right thyroid nodule. Submitted for cytology preparation including cell block. B - Received are 12 smears labeled with the patient's name and designated per the requisition as right thyroid nodule. Submitted for staining. C - Received is 30 ml of light brown cloudy fluid labeled with the patient's name and and designated per the requisition as isthmus nodule. Submitted for cytology preparation including cell block. D - Received are 12 smears labeled with the patient's name and designated per the requisition as isthmus nodule. Submitted for staining. / bartolo 07/23/2021 TC:5 CPT: 74823 x2, 47412 x 4
== END | disposition home or self-care (01) ==
LOC: LABSPEC 15:24
PROVIDERS: PCP Family Medicine; Referring Provider Family Medicine; Visit Provider Family Medicine
DX: E04.1 Nontoxic single thyroid nodule (principal)
CPT/HCPCS: 88108; 88161; 88305; 88313; 88341; 88342

== ENCOUNTER → 2021-09-26 | Outpatient (CLI) | payer OTHER, SELFPAY | END | disposition home or self-care (01) | LOC: LABSPEC 09:36 | PROVIDERS: PCP Family Medicine; Visit Provider Nurse Practitioner Family | DX: R30.0 Dysuria (principal) | CPT/HCPCS: 87086; 87088; 87186 ==

== ENCOUNTER → 2021-11-14 | Outpatient (CLI) | payer OTHER, SELFPAY | END | disposition home or self-care (01) | LOC: LABSPEC 15:28 | PROVIDERS: PCP Family Medicine; Visit Provider Family Medicine | DX: N39.0 Urinary tract infection, site not specified (principal) | CPT/HCPCS: 87077; 87086; 87088; 87186 ==

== ENCOUNTER → 2021-11-27 | Outpatient (CLI) | payer OTHER, SELFPAY ==
[2021-11-27 08:44] LABS: Bacteria 0 SEEN /hpf (None Seen); Mucous, Urine 0 SEEN /hpf (<or=2+); Red Blood Cells-Urine 0 SEEN /hpf (0-5); Squamous Epithelial Cells - UA 0 SEEN /hpf (5-10); White Blood Cells 0 SEEN /hpf (0-5)
[2021-11-27 10:10] LABS: Absolute Lymphocyte Count 1.88 X10^3/uL (0.83-4.51); Basophil# 0.04 X10^3/uL; Basophil% 0.6 % (0-1); Eosinophil# 0.07 X10^3/uL; Eosinophils% 1.1 % (0-5); Hemoglobin 13.7 g/dL (12.0-15.0); Lymphocyte # 1.88 X10^3/ul (0.83-4.51); Lymphocyte % 28.7 % (19-41); Mean Corp Hgb Conc 33.4 g/dL (32-36); Mean Corpuscular Hgb 31.6 pg (27.0-32.0); Mean Corpuscular Volume 94.5 fL (81-99); Mean Platelet Vol. 11.2 fl (6.2-12.0); Monocyte# 0.58 X10^3/uL; Monocyte% 8.9 % (0-10); NRBC Flagged by Analyzer 0 % (0-5); Neutrophil # 3.96 X10^3/uL (2.7-7.7); Neutrophil % 60.5 % (47-70); Platelet Count 245 K/mm3 (150-450); RBC Distribution Width CV 11.9 % (11.6-14.6); RBC Distribution Width SD 41.1 fl (35.1-43.9); Red Blood Count 4.34 M/mm3 (4.2-5.4); White Blood Count 6.5 K/mm3 (4.4-11.0)
[2021-11-27 10:17] LABS: Color, Urine Yellow (Yellow); Glucose, Dipstick Normal (Normal); Ketone-Dipstick Negative (Negative); Leukocyte Esterase-Dipstick Negative /ul (Negative); Nitrite-Dipstick Negative (Negative); Occult Blood-Urine 10 /ul (Negative); Protein-Dipstick Negative (Negative); Urine Bilirubin Dipstick Negative (Negative); Urine Clarity Clear (Clear); Urine Urobilinogen Normal (Normal)
[2021-11-27 10:29] LABS: Vitamin D,25 Hydroxy 32.1 ng/mL
[2021-11-27 11:23] LABS: ALB/GLOB Ratio 1.1 RATIO (0.9-2.4); AST(SGOT) 17 U/L (15-37); Alanine Aminotransfer ALT/SGPT 27 U/L (13-56); Albumin, Serum 3.7 g/dL (3.2-5.0); Alkaline Phosphatase 66 U/L (45-117); Anion Gap 3 (5-15); BUN 16 mg/dL (7-18); BUN/Creat Ratio 20.6 RATIO (10-20); Calcium,Total 9.3 mg/dL (8.5-10.1); Chloride 108 mmol/L (98-107); Creatinine, Serum 0.78 mg/dL (0.55-1.02); EST Glomerular Filtration Rate 80 mL/min (>60); Est Glom Filt Rate - Afr Amer 96 mL/min (>60); Globulin 3.5 g/dL (2.2-4.2); Glucose 86 mg/dL (74-106); Potassium 4.3 mmol/L (3.5-5.1); Protein, Total 7.2 g/dL (6.4-8.2); Sodium Level 140 mmol/L (136-145)
== END | disposition home or self-care (01) ==
LOC: MFPLAB 08:41
PROVIDERS: Family Medicine; PCP Family Medicine; Visit Provider Family Medicine
DX: E55.9 Vitamin D deficiency, unspecified (principal); I10 Essential (primary) hypertension
CPT/HCPCS: 36415; 80053; 81001; 82306; 85025

== ENCOUNTER → 2022-01-04 | Outpatient (CLI) | payer OTHER, SELFPAY ==
[2022-01-04 11:53] LABS: T4 Free Direct 1.99 ng/dL (0.76-1.46); Thyroid Stim Hormone (TSH) 1.01 uIU/mL (0.358-3.74)
[2022-01-09 09:11] LABS: Anti-Thyroglobulin AB < 1.0 IU/mL (0.0-0.9); Thyroglobulin, Serum Qt. < 0.1 ng/mL (1.5-38.5)
== END | disposition home or self-care (01) ==
LOC: MTLAB 07:51
PROVIDERS: PCP Family Medicine; Referring Provider Internal Medicine Endocrinology, Diabetes & Metabolism; Visit Provider Internal Medicine Endocrinology, Diabetes & Metabolism
DX: C73 Malignant neoplasm of thyroid gland (principal); E89.0 Postprocedural hypothyroidism
CPT/HCPCS: 36415; 84432; 84439; 84443; 86800

== ENCOUNTER → 2022-05-24 | Outpatient (CLI) | payer OTHER, SELFPAY ==
--- NOTE | 2022-05-24 08:22 | CT_ITS ---
STUDY: CT MAXILLOFACIAL SINUSES REASON FOR EXAM: Female, 62 years old. FACIAL PAIN L RADIATION DOSAGE (If Supplied By Facility): CTDIvol = ( 33.06 ) mGy, DLP = ( 792.53 ) mGycm TECHNIQUE: The patient was scanned in a multi detector CT scanner. High resolution axial imaging was performed without the administration of intravenous contrast material. Sagittal and coronal images were reconstructed. Individualized dose optimization techniques were used for this CT. COMPARISON: None. FINDINGS: Small benign-appearing bilateral submental lymph nodes. FRONTAL SINUSES: Normal aeration, without mucosal inflammatory disease. ETHMOIDAL SINUSES: Normal aeration, without mucosal inflammatory disease. MAXILLARY SINUSES: Normal aeration, without mucosal inflammatory disease. SPHENOIDAL SINUSES: Normal aeration, without mucosal inflammatory disease. There is patency of the bilateral maxillary infundibuli with normal uncinate processes, ethmoid bullae, and hiatus semilunaris. Normal bilateral middle turbinates. Normal bilateral inferior turbinates. Normal midline nasal septum. There is patency of the bilateral nasal airways. The visualized osseous structures are normal. The visualized bilateral orbital contents are normal. CT/Sinus/Facial Bone IMPRESSION: Normal CT examination of the maxillofacial sinuses. Electronically Signed: Romulo Hermosillo MD at 10:58 EST ,
== END | disposition home or self-care (01) ==
LOC: CT 08:16
PROVIDERS: PCP Family Medicine; Visit Provider Otolaryngology
DX: G50.1 Atypical facial pain (principal)
CPT/HCPCS: 70486

== ENCOUNTER → 2022-08-16 | Outpatient (CLI) | payer OTHER, SELFPAY ==
--- NOTE | 2022-08-16 12:45 | EKG12_ITS ---
Test Reason : PREOP Blood Pressure : / mmHG Vent. Rate : 057 BPM Atrial Rate : 057 BPM P-R Int : 152 ms QRS Dur : 080 ms QT Int : 410 ms P-R-T Axes : 043 -07 030 degrees QTc Int : 399 ms Sinus bradycardia Otherwise normal ECG When compared with ECG of 07-NOV-2016 09:30, No significant change was found Confirmed by KESHA MITCHELL, SABINA ([id number]), general expeditor RAULITO LEAL ([id number]) on 08/20/2022 9:11:13 AM Referred By: Ravindra Cleveland Confirmed By:SABINA REBOLLEDO MD
[2022-08-16 13:34] LABS: Hematocrit 46.2 % (37-47); Hemoglobin 15.2 g/dL (12.0-15.0); Mean Corp Hgb Conc 32.9 g/dL (32-36); Mean Corpuscular Hgb 31.1 pg (27.0-32.0); Mean Corpuscular Volume 94.5 fL (81-99); Mean Platelet Vol. 10.5 fl (6.2-12.0); Platelet Count 315 K/mm3 (150-450); RBC Distribution Width CV 12.2 % (11.6-14.6); RBC Distribution Width SD 42.7 fl (35.1-43.9); Red Blood Count 4.89 M/mm3 (4.2-5.4); White Blood Count 8.7 K/mm3 (4.4-11.0)
[2022-08-16 13:59] LABS: Anion Gap 4 (5-15); BUN 15 mg/dL (7-18); BUN/Creat Ratio 20.1 RATIO (10-20); Calcium,Total 9.5 mg/dL (8.5-10.1); Chloride 102 mmol/L (98-107); Creatinine, Serum 0.75 mg/dL (0.55-1.02); EST Glomerular Filtration Rate 83 mL/min (>60); Est Glom Filt Rate - Afr Amer 101 mL/min (>60); Glucose 96 mg/dL (74-106); Potassium 4.2 mmol/L (3.5-5.1); Sodium Level 138 mmol/L (136-145)
== END | disposition home or self-care (01) ==
LOC: PSN 12:34
PROVIDERS: PCP Family Medicine; Referring Provider Otolaryngology; Visit Provider Otolaryngology
DX: Z01.810 Encounter for preprocedural cardiovascular examination (principal); Z01.812 Encounter for preprocedural laboratory examination; Z01.818 Encounter for other preprocedural examination
CPT/HCPCS: 36415; 80048; 85027; 93005

== ENCOUNTER → 2022-08-19 | Outpatient (CLI) | payer OTHER, SELFPAY ==
--- NOTE | 2022-08-19 13:00 | SEP_PTH ---
PATIENT: HUDSON WOMACK [facility] U#:[id number] AGE/SX: 62/F ROOM: RE08/19/[address]: Dr. Ravindra Cleveland MD : 1960 BED: DIS: 08/19/2022 SPEC #: [id number] RECD: 08/19/22 15:39 STATUS: ENDER REPeewee #: [id number] KAMAR: 08/19/22 13:[address]: Ravindra Cleveland DEPT: SURGICAL PATHOLOGY RECD BY: Regina Rivera ENTERED: 08/20/22 07:49 SP TYPE: SEPTUM OTHR DR: Radha Rodriguez, [facility] Tissues: Nasal septum, NOS Procedures: Decalcification bone/plaque Surgery Specimen Level III HEADER OPERATION: Septoplasty, bilateral submucous resection inferior turbinates PRE-OP DIAGNOSIS: Nasal airway obstruction, deviated septum, inferior turbinates hypertrophy TISSUE SUBMITTED: Septum MICROSCOPIC DIAGNOSIS Septum: Fragment of bone and cartilage, clinically deviated septum. DALY:bartolo 08/23/2022 MICROSCOPIC DESCRIPTION Slides are reviewed. GROSS DESCRIPTION Received in fixative is one container labeled with the patient's name and designated septum. The specimen consists of multiple irregular fragments of bone and cartilage that in aggregate measure 3.5 x 2.0 x 0.3 cm. Apparel Merchandiser tissue is submitted in one cassette after decalcification. / DALY:bartolo 08/20/2022 TC:5 CPT: 72752, 69969
== END | disposition home or self-care (01) ==
LOC: LABSPEC 15:50
PROVIDERS: PCP Family Medicine; Referring Provider Otolaryngology; Visit Provider Otolaryngology
DX: J34.89 Other specified disorders of nose and nasal sinuses (principal); J34.3 Hypertrophy of nasal turbinates
CPT/HCPCS: 88304; 88311

== ENCOUNTER → 2023-01-31 | Outpatient (CLI) | payer OTHER, SELFPAY ==
--- NOTE | 2023-01-31 15:16 | BI_ITS ---
MAMMOGRAPHY - BILATERAL SCREENING REASON FOR EXAM: Female, 62 years old. Routine annual screening examination. PERTINENT HISTORY: Non-contributory. TECHNIQUE: Digital bilateral breast yandel (3D mammographic acquisition) in the CC and MLO projections. 2-D mediolateral oblique (MLO) and craniocaudad (CC) views of both breasts were obtained. CAD: Full Field Digital Mammography with Computer Added Detection was performed. COMPARISON: Comparison is made with prior study dated January 19, 2021 and October 07, 2019. FINDINGS: Breast Composition: There are scattered areas of fibroglandular density. There are no dominant masses or suspicious calcifications. No other significant abnormalities are identified. There has been no significant change since the prior study. BI/SCRN MAMM (CAD)W/YANDEL BILAT IMPRESSION: Stable bilateral screening mammogram. Yearly follow-up mammogram recommended. (A) ASSESSMENT CATEGORY: BIRADS Category 1: Negative. A letter regarding these results will be sent to the patient by the facility within 30 days. Approximately 10% of breast cancers are not detected by mammography. A normal mammogram should not delay biopsy of a clinically suspicious abnormality. [id number] Electronically Signed: Romulo Hermosillo MD at 9:04 EST ,
== END | disposition home or self-care (01) ==
PROVIDERS: PCP Family Medicine; Referring Provider Family Medicine; Visit Provider Family Medicine
DX: Z12.31 Encounter for screening mammogram for malignant neoplasm of breast (principal)
CPT/HCPCS: 77063; 77067

== ENCOUNTER → 2023-03-19 | Outpatient (CLI) | payer OTHER, SELFPAY ==
[2023-03-19 10:44] LABS: Vitamin D,25 Hydroxy 37.2 ng/mL
[2023-03-19 10:54] LABS: T4 Free Direct 1.94 ng/dL (0.76-1.46); Thyroid Stim Hormone (TSH) 0.98 uIU/mL (0.358-3.74)
[2023-03-20 14:09] LABS: Anti-Thyroglobulin AB < 1.0 IU/mL (0.0-0.9); Thyroglobulin, Serum Qt. < 0.1 ng/mL (1.5-38.5)
== END | disposition home or self-care (01) ==
PROVIDERS: Internal Medicine Endocrinology, Diabetes & Metabolism; PCP Family Medicine; Visit Provider Family Medicine
DX: E55.9 Vitamin D deficiency, unspecified (principal); C73 Malignant neoplasm of thyroid gland; E89.0 Postprocedural hypothyroidism
CPT/HCPCS: 36415; 82306; 84432; 84439; 84443; 86800

== ENCOUNTER → 2024-02-09 | Outpatient (CLI) | payer OTHER, SELFPAY | END | disposition home or self-care (01) | LOC: OPBI 12:55 | PROVIDERS: PCP Family Medicine; Referring Provider Nurse Practitioner Family; Visit Provider Nurse Practitioner Family | DX: Z12.31 Encounter for screening mammogram for malignant neoplasm of breast (principal) | CPT/HCPCS: 77063; 77067 ==

== ENCOUNTER → 2024-02-13 | Outpatient (CLI) | payer OTHER, SELFPAY ==
[2024-02-13 12:29] LABS: Vitamin D,25 Hydroxy 36.5 ng/mL
[2024-02-13 12:33] LABS: Absolute Lymphocyte Count 2.28 X10^3/uL (0.83-4.51); Absolute Neutrophil Count 3.6 X10^3/uL (2.0-7.7); Basophil# 0.08 X10^3/uL; Basophil% 1.2 % (0-1); Eosinophil# 0.11 X10^3/uL; Eosinophils% 1.6 % (0-5); Hematocrit 44.4 % (37-47); Hemoglobin 14.7 g/dL (12.0-15.0); Lymphocyte # 2.28 X10^3/ul (0.83-4.51); Lymphocyte % 33.6 % (19-41); Mean Corp Hgb Conc 33.1 g/dL (32-36); Mean Corpuscular Hgb 31.7 pg (27.0-32.0); Mean Corpuscular Volume 95.9 fL (81-99); Mean Platelet Vol. 11.2 fl (6.2-12.0); Monocyte# 0.68 X10^3/uL; NRBC Flagged by Analyzer 0 % (0-5); Neutrophil # 3.62 X10^3/uL (2.7-7.7); Neutrophil % 53.3 % (47-70); Platelet Count 284 K/mm3 (150-450); RBC Distribution Width CV 12.3 % (11.6-14.6); RBC Distribution Width SD 43.2 fl (35.1-43.9); Red Blood Count 4.63 M/mm3 (4.2-5.4); White Blood Count 6.8 K/mm3 (4.4-11.0)
[2024-02-13 12:54] LABS: AST(SGOT) 22 U/L (15-37); Alanine Aminotransfer ALT/SGPT 38 U/L (13-56); Albumin, Serum 3.8 g/dL (3.2-5.0); Alkaline Phosphatase 78 U/L (45-117); Anion Gap 4 (5-15); BUN 12 mg/dL (7-18); BUN/Creat Ratio 16.9 RATIO (10-20); Calcium,Total 9.4 mg/dL (8.5-10.1); Chloride 106 mmol/L (98-107); Creatinine, Serum 0.71 mg/dL (0.55-1.02); EST Glomerular Filtration Rate 87 mL/min (>60); Est Glom Filt Rate - Afr Amer 106 mL/min (>60); Globulin 3.9 g/dL (2.2-4.2); Glucose 96 mg/dL (74-106); Potassium 4.5 mmol/L (3.5-5.1); Protein, Total 7.7 g/dL (6.4-8.2); Sodium Level 138 mmol/L (136-145)
== END | disposition home or self-care (01) ==
LOC: MFPLAB 10:01
PROVIDERS: PCP Family Medicine; Visit Provider Family Medicine
DX: E03.9 Hypothyroidism, unspecified (principal); I10 Essential (primary) hypertension; E55.9 Vitamin D deficiency, unspecified
CPT/HCPCS: 36415; 80053; 82306; 84439; 84443; 85025

== ENCOUNTER 2024-05-29 08:24 | Emergency (ER) | payer MEDICARE, SELFPAY ==
[2024-05-29 08:24] VITALS: BP 146/98; PULSE 68; RESP 14; TEMP 36.2; O2SAT 98; BMI 32.3
--- NOTE | 2024-05-29 08:37 | RAD_ITS ---
PROCEDURE: FINGER(S) MIN 2 VIEWS REASON FOR EXAM: Pain in thumb TECHNIQUE: 3 view(s) of the left thumb COMPARISON: None FINDINGS: No visible fracture. Normal alignment. Soft tissues are unremarkable. RAD/Finger(s) Min 2 Views IMPRESSION: No acute osseous abnormality in the left thumb Reading Location: [facility]
--- NOTE | 2024-05-29 09:07 | EX.ED.GENINJ ---
HPI History of Present Illness Chief Complaint: Laceration Narrative Narrative: Patient is a 64-year-old female who presented to the emergency department the chief complaint of left thumb laceration. Patient states that she was cutting a bagel this morning and cut her thumb with a knife. States that her tetanus shot is up-to-date. Patient felt that this was deep and needed stitches therefore she came here for the valuation management. Patient states that she can move her thumb and feel without any difficulty PFSH PFS Medical History Obesity Postoperative primary hypothyroidism Malignant neoplasm of thyroid gland Basaloid carcinoma Back pain Knee pain Migraines Hay fever Shoulder pain Hemorrhoids Arthritis Home Medications ?Medication ?Instructions ?Recorded ?Last Taken ?Type cholecalciferol (vitamin D3) 25 25 mcg PO DAILY 10/29/21 Unknown History mcg (1,000 unit) capsule cranberry 500 mg capsule 500 mg PO DAILY 11/10/23 Unknown History losartan 50 mg tablet 50 mg PO QDAY 11/10/23 Unknown History clobetasol 0.05 % topical cream 1 applic topical DAILY 11/17/23 Unknown History triamcinolone acetonide 0.1 % 1 applic topical DAILY 11/17/23 Unknown History topical cream estradiol 0.01% (0.1 mg/gram) See Rx Instructions vaginal DAILY 01/01/24 Unknown Rx vaginal cream #42.5 grams levothyroxine 100 mcg tablet 100 mcg PO DAILY #90 tabs 05/04/24 Unknown Rx Allergy/AdvReac Type Severity Reaction Status Date / Time Sulfa (Sulfonamide Allergy Anaphylaxis Verified 05/29/24 08:25 Antibiotics) tomato Allergy Mucosal Verified 05/29/24 08:25 lesions codeine AdvReac Nausea/Vom/ Verified 05/29/24 08:25 Diarrhea hydrocodone (From Vicodin) AdvReac HALLUCINATI Verified 05/29/24 08:25 ONS promethazine (From Phenergan) AdvReac HALLUCINATI Verified 05/29/24 08:25 ONS Family History Father Hypertension Hypercholesterolemia Parkinson disease Dementia Prostate cancer Mother Thyroid disorder Heart disease Other Arthritis Skin cancer Surgical History Hx of shoulder surgery History of bladder suspension procedure History of hysterectomy H/O Achilles tendon repair History of tonsillectomy and adenoidectomy Social History household members: spouse current occupational status: employed current occupation: [employer] Smoking Status: Never smoker alcohol intake: current alcohol intake frequency: a few times a month Alcohol type: beer and wine substance use type: does not use what type of physical activity do you participate in: walking frequency: daily seatbelt use: always do you feel safe at home: Yes additional social history: - Daryn- Retired ROS ROS ED ROS Narrative Neurological: Denies numbness, weakness, tingling Musculoskeletal: Complains of left thumb lack as noted above EXAM Physical Exam Narrative Exam Narrative: General: Patient sitting in chair at bedside rest comfortably did not appear to be in acute distress Head: Atraumatic, normocephalic Eyes: PERRL bilaterally, EOMI bilaterally Neck: Trachea midline Cardiovascular: Regular rate Extremities: Patient is able to fully flex and extend her left thumb without any difficulty, radial pulses +2/4 in the bilateral extremities +5/5 strength noted in the bilateral upper extremities Neurological: Patient follow commands and that she was at [facility] year is 2024. Sensation grossly intact in median ulnar radial nerve distribution bilaterally Skin: Warm, dry, patient has a simple approximately 1.5 cm laceration to the volar aspect of her left thumb. No active bleeding noted. Const Vital Signs: 05/29/24 08:24 Temperature 97.1 F L Temperature Source Temporal Pulse Rate 68 Respiratory Rate 14 Blood Pressure 146/98 H Blood Pressure Mean 114 Pulse Ox 98 Oxygen Delivery Method Room Air MDM MDM MDM Narrative Medical decision making narrative: Patient is a 64-year-old female who presented to the emergency department chief complaint of left thumb laceration. On the differential diagnose includes but not limited to left thumb laceration, retained foreign body. Once the x-rays obtained and reviewed with the laceration will be repaired. Patient's finger x-ray reviewed by myself by radiology showed no acute osseous abnormalities of left thumb. Patient had laceration repaired here in the Emergency Department tolerated this well. She is advised to have these removed in approximately 7 days by her primary care physician she was vies watch out for signs infection. She is agreeable this plan she like to go home at this point time. All question concerns answered she is discharged home in stable condition. Procedure note Procedure name: Laceration repair Indication: Reduce risk of infection Location: 1/2 cm laceration to the volar/medial aspect of left thumb simple Preprocedure diagnosis: Laceration Postprocedure diagnosis: Repaired laceration Informed consent was obtained prior to procedure started. Procedure: The appropriate timeout was taken. The area was prepped and draped in usual sterile fashion. Local anesthesia was achieved using 2 cc of lidocaine 1% without epinephrine. Wound was copiously irrigated. 3 4-0 Ethilon interrupted sutures were placed. Estimated blood loss was less than 0.5 mL. Dressing was applied to the area and anticipatory guidance, as well as standard postprocedure care was explained. Return precautions are given. Patient tolerated procedure well without any complications. Follow-up visit for suture removal and evaluation of laceration. Radiography Diagnostic Testing: Clinical Impression(s) from Imaging Studies Finger X-Ray 05/29/24 08:37 IMPRESSION: No acute osseous abnormality in the left thumb Reading Location: [facility] Discharge Plan Triage Chief Complaint: Laceration ED Provider: Shalom Claudio Dx/Rx/DC Orders Clinical Impression: Laceration of left thumb Prescriptions: No Action cholecalciferol (vitamin D3) 25 mcg (1,000 unit) capsule 25 mcg PO DAILY cranberry 500 mg capsule 500 mg PO DAILY Rx Instructions: administer with meals losartan 50 mg tablet 50 mg PO QDAY clobetasol 0.05 % cream 1 applic topical DAILY triamcinolone acetonide 0.1 % cream 1 applic topical DAILY estradiol 0.01 % (0.1 mg/gram) cream See Rx Instructions vaginal DAILY Qty: 42.5 4RF Rx Instructions: pea sized amount using finger tip method every night x 2 weeks then 2-3 times a week there after. levothyroxine 100 mcg tablet 100 mcg PO DAILY Qty: 90 1RF Primary Care Provider: Radha Walker Referrals: Radha Walker MD [Primary Care Provider] - Activity Restrictions/Additional Instructions: Keep the area dry and clean. You can let warm soapy water run over this no soaking the sutures. Watch out for signs infection such as surrounding redness or purulent drainage. Have the sutures removed in approximately 7 days by your primary care physician. Return with worsening symptoms and concerns Print Language: Tamazight Disposition Disposition: Home, Self Care
[2024-05-29] MEDS: Lidocaine 1% (20 ml mdv) 20 ML Vial 10 ML INFILT (09:21)
== END 2024-05-29 10:30 | disposition home or self-care (01) ==
PROVIDERS: Emergency Provider Emergency Medicine; PCP Family Medicine; Visit Provider Emergency Medicine
DX: S61.012A Laceration without foreign body of left thumb without damage to nail, initial encounter (principal); Z90.710 Acquired absence of both cervix and uterus; W26.0XXA Contact with knife, initial encounter
CPT/HCPCS: 12001; 73140; 99283

== ENCOUNTER → 2024-08-30 | Outpatient (CLI) | payer MEDICARE, SELFPAY ==
[2024-08-30 13:03] LABS: Cholesterol 182 mg/dL (<=200); High Density Lipoprotein 42 mg/dL; Low Density Lipoprotein Calc. 124 mg/dL; Triglycerides 85 mg/dL; Very Low Density Lipoprotein 17 mg/dL (5-40); cholesterol:hdl ratio screen 4.38
[2024-08-30 13:05] LABS: Rheumatoid Factor < 10.0 IU/mL (<15)
[2024-08-31 12:09] LABS: ANTINUCLEAR ANTIBODIES DIRECT Negative (Negative)
== END | disposition home or self-care (01) ==
LOC: MTLAB 07:43
PROVIDERS: PCP Family Medicine; Referring Provider Family Medicine; Visit Provider Family Medicine
DX: E03.9 Hypothyroidism, unspecified (principal); M25.50 Pain in unspecified joint; I10 Essential (primary) hypertension
CPT/HCPCS: 36415; 80061; 84439; 84443; 86038; 86431

== ENCOUNTER → 2024-09-07 | Outpatient (CLI) | payer MEDICARE, SELFPAY ==
--- NOTE | 2024-09-07 15:24 | BD_ITS ---
PROCEDURE: DEXA BONE DENSITY STUDY 09/07/2024 REASON FOR EXAM: F, age 64 y/o . Postmenopausal. TECHNIQUE: DXA scan of sites with data reported below. REFERENCE LINKS: [facility] Adult Positions COMPARISON: None FINDINGS: BMD and T-SCORES Lumbar spine: 0.935 g/cm2, T-score -1.0 Levels: L1 through L4 Left femoral neck: 0.677 g/cm2, T-score -1.6 Femoral neck comparison data not recommended for monitoring change. Left total hip: 0.810 g/cm2, T-score -1.1 Right femoral neck: 0.698 g/cm2, T-score -1.4 Femoral neck comparison data not recommended for monitoring change. Right total hip: 0.807 g/cm2, T-score -1.1 The World Health Organization has defined the following categories based on bone density: Normal bone density: T-score equal to or greater than -1.0 Osteopenia: T-score between -1.0 and -2.5 Osteoporosis: T-score equal to or less than -2.5 The patient does meet the pharmacological treatment recommendations for prevention of osteoporosis. BD/Dexa Bone Density Study IMPRESSION: OSTEOPENIA. Recommend follow-up as clinically warranted. Reading Location: [place] [id number]
== END | disposition home or self-care (01) ==
LOC: OPBD 15:16
PROVIDERS: PCP Family Medicine; Referring Provider Family Medicine; Visit Provider Family Medicine
DX: Z78.0 Asymptomatic menopausal state (principal)
CPT/HCPCS: 77080

== ENCOUNTER → 2024-11-08 | Outpatient (CLI) | payer MEDICARE, SELFPAY ==
[2024-11-11 16:09] LABS: Thyroglobulin, Serum Qt. < 0.1 ng/mL (1.5-38.5)
== END | disposition home or self-care (01) ==
LOC: LAB 14:26
PROVIDERS: PCP Family Medicine; Referring Provider Internal Medicine Endocrinology, Diabetes & Metabolism; Visit Provider Internal Medicine Endocrinology, Diabetes & Metabolism
DX: C73 Malignant neoplasm of thyroid gland (principal); E89.0 Postprocedural hypothyroidism
CPT/HCPCS: 36415; 84432; 84439; 84443; 86800

== ENCOUNTER → 2024-11-24 | Outpatient (CLI) | payer MEDICARE, SELFPAY ==
--- NOTE | 2024-11-24 11:43 | US_ITS ---
PROCEDURE: KIDNEY AND BLADDER 11/24/2024 REASON FOR EXAM: UTI TECHNIQUE: KIDNEY AND BLADDER COMPARISON: None FINDINGS: Kidneys: Normal renal sizes, parenchymal thicknesses, and echotextures. Girard: No hydronephrosis. Cysts or Masses: Left parapelvic cysts. The larger measures 1.2 cm 1.2 cm 1 cm. Other: 4 mm x 6 mm x 4 mm nonobstructive calculus in the lower pole of the right kidney. RIGHT Kidney Size: 10 cm x 5.8 cm x 5.4 cm Volume: 165 mL Cortical Thickness (if discernible): 11 mm (>6mm is normal) LEFT Kidney Size: 10.9 cm x 6.2 cm x 5.1 cm Volume: 181.85 mL Cortical Thickness (if discernible): 11 mm (>6mm is normal) US/Kidney and Bladder IMPRESSION: Left parapelvic renal cysts. Nonobstructive calculus in the lower pole calyx of the right kidney. Reading Location: [id number]
== END | disposition home or self-care (01) ==
PROVIDERS: PCP Family Medicine; Referring Provider Urology; Visit Provider Urology
DX: N39.0 Urinary tract infection, site not specified (principal)
CPT/HCPCS: 76770

== ENCOUNTER → 2024-12-15 | Outpatient (CLI) | payer MEDICARE, SELFPAY ==
--- NOTE | 2024-12-15 17:45 | CT_ITS ---
PROCEDURE: CT ABDOMEN/PELVIS WITHOUT CONTRAST 12/15/2024 REASON FOR EXAM: RIGHT KIDNEY STONE ON ULTRASOUND, UTI TECHNIQUE: Procedure Code: CTABDPEL Modality: CT Procedure: ABDOMEN/PELVIS WITHOUT CONT Noncontrast technique limits evaluation of the abdominal and pelvic viscera. Coronal and Sagittal reconstruction series were provided. One or more dose reduction techniques were used (e.g., Automated exposure control, adjustment of the mA and/or kV according to patient size, use of iterative reconstruction technique). RADIATION DOSE SUMMARY: CTDlvol: 9.13 mGy DLP: 460/ 6 mGycm COMPARISON: No prior CT. Renal ultrasound 11/24/2024. FINDINGS: Lung bases: Clear. Liver: Unremarkable. Gallbladder: Unremarkable. Spleen: Unremarkable. Pancreas: Unremarkable. Adrenals: Unremarkable. Kidneys: Few bilateral punctate nonobstructive renal stones. No hydronephrosis. Several small left lower pole parapelvic renal cysts. Bladder: Underdistended, grossly unremarkable. Reproductive Organs: Prior hysterectomy. Unremarkable adnexal regions. Bowel: No evidence of obstruction or active inflammatory process. Normal appendix. Mild distal colonic diverticulosis. No evidence for active diverticulitis/colitis. Lymph nodes: No enlarged abdominopelvic lymph nodes. Vasculature: Normal caliber abdominal aorta. Scant atherosclerotic calcifications. Peritoneum / Retroperitoneum: No ascites or free air. Bones: No significant osseous abnormality. Small fat containing right inguinal hernia. CT/Abdomen/Pelvis without Cont IMPRESSION: No acute or active inflammatory intra-abdominal pathology identified. Few bilateral punctate nonobstructive renal stones. No hydronephrosis. Urinary bladder is underdistended, limiting its evaluation. Absence of findings on CT does not exclude the presence of UTI. If there is clinical concern, correlate with laboratory/urinalysis findings. Reading Location: [facility]
== END | disposition home or self-care (01) ==
LOC: CT 17:42
PROVIDERS: PCP Family Medicine; Referring Provider Urology; Visit Provider Urology
DX: N39.0 Urinary tract infection, site not specified (principal); N20.0 Calculus of kidney
CPT/HCPCS: 74176

== ENCOUNTER → 2025-01-21 | Outpatient (CLI) | payer MEDICARE, SELFPAY ==
--- NOTE | 2025-01-21 09:33 | RAD_ITS ---
RAD/Ankle min 3 Views
--- NOTE | 2025-01-21 09:33 | RAD_ITS ---
PROCEDURE: RAD/Lumbar Spine 2 or 3 Views
--- NOTE | 2025-01-21 09:33 | RAD_ITS ---
RAD/Foot min 3 Views
== END | disposition home or self-care (01) ==
LOC: MTRAD 09:33
PROVIDERS: PCP Family Medicine; Referring Provider Family Medicine; Visit Provider Family Medicine
DX: M79.671 Pain in right foot (principal); M54.32 Sciatica, left side
CPT/HCPCS: 72100; 73610; 73630